=== PATIENT | male | born 1930 | race Caucasian/White ===

== ENCOUNTER 2019-12-16 18:43 | Outpatient (CLI) | payer MEDICARE | END 2019-12-16 18:44 | disposition EMS.NT | LOC: EMS 18:43 | PROVIDERS: ATTEND Surgery | DX: R40.4 Transient alteration of awareness (principal) ==

== ENCOUNTER 2020-09-16 08:00 | Outpatient (CLI) | payer MEDICARE, BC ==
--- NOTE | 2020-09-16 15:23 | XRAY Report ---
PROCEDURE: Ankle 3 View RT INDICATIONS: RIGHT ANKLE JOINT PAIN TECHNIQUE: 3 views of the ankle were acquired. COMPARISON: None. FINDINGS: Bones: No fractures or dislocations. Ankle mortise is normally aligned. No suspicious bony lesions . Soft tissues: No tibiotalar joint effusion. Achilles tendon appears normal. IMPRESSION: No acute osseous abnormality. Reviewed by: Uriel Ponce MD on 09/16/2020 2:21 PM [facility] Approved by: Uriel Ponce MD on 09/16/2020 2:21 PM [facility] Station ID: [id number]
== END 2020-09-16 23:59 | disposition home or self-care (01) ==
LOC: DI.S 08:00
PROVIDERS: ATTEND Physician Assistant Medical
DX: M25.571 Pain in right ankle and joints of right foot (principal)

== ENCOUNTER 2022-01-15 08:00 | Outpatient (CLI) | payer MEDICARE, BC ==
--- NOTE | 2022-01-15 15:01 | XRAY Report ---
PROCEDURE: Wrist 3 View RT INDICATIONS: UNSPECIFIED FRACTURE OF RIGHT WRIST TECHNIQUE: 3 views of the wrist were acquired. COMPARISON: None. FINDINGS: BONES: Ossific lesion along the dorsal aspect of the carpus, concerning for a displaced triquetral fr acture, age indeterminate. 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 Narrowing of the radiocarpal articulation with sclerosis of the opposing articular surface. Fibrocystic change of the subchondral distal radius. The lunate is not well seen, which may reflect collapse or postsurgical change. SOFT TISSUES: Diffuse edema. IMPRESSION: 1.Age-indeterminate fracture of the triquetrum. 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 Reviewed by: Jose Maier MD on 01/15/2022 2:59 PM PDT Approved by: Jose Maier MD on 01/15/2022 2:59 PM PDT Station ID: [id number]
== END 2022-01-15 23:59 | disposition home or self-care (01) ==
LOC: DI.S 08:00
PROVIDERS: ATTEND Emergency Medicine
DX: S62.111A Displaced fracture of triquetrum [cuneiform] bone, right wrist, initial encounter for closed fracture (principal); M19.031 Primary osteoarthritis, right wrist